=== PATIENT | female | born 1965 | race Caucasian/White ===

== ENCOUNTER 2016-11-06 05:44 | Inpatient (IN) | payer OTHER ==
[2016-11-06] VITALS (33 sets, daily range): BP systolic 115–155; BP diastolic 55–76; PULSE 65–78; RESP 13–26; TEMP 97.1–99.2; O2SAT 91–100; Ht 158.8 cm; Wt 65.5 kg
[~2016-11-06] VITALS: Ht 158.8 cm; Wt 65.5 kg
[~2016-11-06 05:44] MED LIST: ACET-44 PO; BUPR100T5 PO; ECHI400C18 PO; IBUP-1547 PO; IMMUNE SUPPORT; NORE1TAB32 PO; SERT50TA PO; VITA80008 PO
[2016-11-06 06:31] LABS: BASOPHILS % (AUTO) 0.7 % (0-2); EOSINOPHILS # (AUTO) 0.2 T/MM3 (0-0.5); EOSINOPHILS % (AUTO) 4.1 % (0-4); HCT - HEMATOCRIT 40.8 % (36-46); HGB - HEMOGLOBIN 13.6 GM/DL (12-16); LYMPHOCYTES # (AUTO) 1.4 T/MM3 (1-4.8); MEAN CORPUSCULAR HGB 31.9 UUG (26-34); MEAN CORPUSCULAR HGB CONC(MCHC 33.3 GM/DL (31-37); MEAN CORPUSCULAR VOLUME 95.6 UM3 (80-100); MEAN PLATELET VOLUME 10.4 UM3 (9.4-12.4); MONOCYTES # (AUTO) 0.3 T/MM3 (0-0.8); MONOCYTES % (AUTO) 7.5 % (0-9.0); NEUTROPHILS #(AUTO)-ABSOLUTE 2.5 T/MM3 (1.8-7.7); NEUTROPHILS % (AUTO) 56.7 % (33-66); RED BLOOD COUNT 4.27 M/MM3 (4.00-5.20); WBC - WHITE BLOOD COUNT 4.4 T/MM3 (4.5-11.0)
[2016-11-06 06:41] LABS: ANION GAP 11 MEQ/L (5-15); BUN/CREATININE RATIO 14 RATIO (6-26); CALCIUM 9.2 MG/DL (8.4-10.2); CHLORIDE 106 MEQ/L (98-107); CO2 - CARBON DIOXIDE 28 MEQ/L (22-30); CREATININE 0.8 MG/DL (0.7-1.2); GLOMERULAR FILTRATION RATE 76; GLUCOSE 90 MG/DL (65-110); POTASSIUM 3.9 MEQ/L (3.6-5); SODIUM 145 MEQ/L (134-144)
[2016-11-06] MEDS ORDERED: LIDOCAINE 1% (10mg/ml) 2ml SDV INJ ONE (06:45)
--- NOTE | 2016-11-06 06:59 | ANESPREOP ---
Anesthesia Record Date and Time DATE: 11/06/16 TIME: 06:57 Pre-Op Diagnosis heavy bleeding Uterine fibroids Proposed Surgical Procedure TOTAL ABD. HYST. WITH OR WITHOUT BSO Allergies: Coded Allergies: No Known Allergies (Unverified , 11/06/16) Ht/Wt/BMI Height: 5 ' 2.50 " Weight: 64.200 kg BMI: 25.5 kg/m2 Vital Signs Date Time Temp Pulse Resp B/P Pulse Ox O2 Delivery O2 Flow Rate FiO2 11/06/16 06:08 97.6 65 13 140/69 99 Room Air Medications Inpatient Medications Current Medications Medications (Trade) Dose Ordered Sig/Artemio Start Time Stop Time Status Last Admin Dose Admin Lactated Ringer's (Lactated Ringers) 1,000 ml @ 100 mls/hr Q10H 11/06/16 07:00 11/06/16 06:41 100 MLS/HR Acetaminophen (Mapap) 500 Mg Tablet, 2 TAB PO Q6H PRN for PAIN, (Reported) Last Taken: on 11/05/162199 Bupropion HCl (Wellbutrin Sr) 100 Mg Tablet.er, 1 TAB PO DAILY, (Reported) Last Taken: on 11/05/162229 Ibuprofen (Ibuprofen) 800 Mg Tablet, 1 TAB PO TID PRN for PAIN, (Reported) Last Taken: on 10/22/16 Norethindrone AC-Eth Estradiol (Junel 1 mg-20 Mcg Tablet) 1 Each Tablet, 1 TAB PO DAILY, (Reported) Last Taken: on 11/03/16 Sertraline (Zoloft) 50 Mg Tablet, 50 MG PO DAILY, ( Reported) Last Taken: on 11/05/162229 Vitamin A (Vitamin A) 8,000 Unit Capsule, 1 CAP PO DAILY, (Reported) Last Taken: on 10/22/16 [Immune Support] , (Reported) Last Taken: on 11/05/162229 Currently on Beta Tasha: No Medical/Surgical History Anesthesia PMH: Reports: Arthritis (mild-knees, hands), Denies: Anesthesia Reactions, Cancer, Glaucoma, Malignant Hyperthermia, Sleep Apnea Smoking Status: Never smoker Has pt. smoked today?: No Use Chewing Tobacco?: No Second Hand Exposure: No Substance Use Type: does not use Alcohol Intake: none HX of Last Menstrual Period: September 2016 Past Surgical History Orthopedic Surgeries: No Abdominal Surgeries: No Genitourinary Surgeries: No Cardiac Surgeries: No Endocrine Surgeries: No Reproductive Surgeries: Yes - Dx Lap and Exp Lap for endometriosis Neurological Surgeries: No Ear Surgeries: No Nose Surgeries: No Throat Surgeries: No Other Surgeries: No Anesthesia Adverse Reactions: FOUND none Family Hx of Anesthesia Advers: none Hx of Motion Sickness: No Pertinent Findings Laboratory Tests 11/06/16 06:20 Test 11/06/16 06:20 Human Chorionic Gonadotropin, Qual Negative (NEGATIVE) EKG Rhythm: Sinus Rhythm Physical Exam Respiratory: Bilat breath sounds equal, Lungs clear Cardiovascular: FOUND Regular rate, rhythm, FOUND No murmur Airway Assessment Mallampati Score: I TMD: 3 Fingerbreadths Neck Extension: Good Overall Assessment: No Airway Concerns ASA: 1 Discussion Discussed risks/options/alternatives of anesthesia and questions answered. Patient consents. Nursing pain assessment noted. Present: Spouse Attestation Statement Prior to the delivery of any anesthetic medication, I examined the patient, developed the plan, obtained the patient's consent and discussed the risk and benefits of the procedure with the patient/guardian. EILEEN FRANK EARLY MORNING November 06, 2016 06:59
[2016-11-06] MEDS ORDERED: MIDAZOLAM 2mg/2ml INJECTION IV ONE (07:00)
[2016-11-06] MEDS ORDERED: LR 1,000 ML IV SCH (07:00)
[2016-11-06] MEDS ORDERED: SCOPOLAMINE 1.5 MG PATCH TD ONE (07:00)
[2016-11-06] MEDS ORDERED: ACETAMINOPHEN 1,000mg Injection IV ONE (07:14)
[2016-11-06] MEDS ORDERED: LIDOCAINE (2%) 100 MG/5 ML PF SYRINGE IV ONE (07:14)
[2016-11-06] MEDS ORDERED: SUFENTANIL 50 MCG/ML VIAL ONE (07:14)
[2016-11-06] MEDS ORDERED: ROCURONIUM 50mg/5ml INJECTION IV ONE ×2 (07:14→08:34)
[2016-11-06] MEDS ORDERED: PROPOFOL 200mg 20 ML IV ONE ×2 (07:14→10:17)
[2016-11-06] MEDS ORDERED: KETAMINE 500mg/10ml INJECTION ONE (07:15)
[2016-11-06 07:59] LABS: BLOOD, URINE 1+ (NEGATIVE); COLOR,URINE YELLOW (YELLOW); LEUKOCYTE ESTERASE ,URINE NEGATIVE (NEGATIVE); NITRITE,URINE NEGATIVE (NEGATIVE); UROBILINOGEN,URINE 0.2 EU/DL (NORMAL)
[2016-11-06] MEDS ORDERED: CEFAZOLIN 1 GRAM INJECTION IV ONE (08:00)
[2016-11-06 08:14] LABS: RBC,URINE 0-1 /HPF (0-3); WBC,URINE NONE SEEN /HPF (0-5)
[2016-11-06 08:15] LABS: BACTERIA,URINE NONE SEEN (NEGATIVE); SQUAMOUS EPITHELIAL CELL,UR NONE SEEN
[2016-11-06] MEDS ORDERED: ROPIVACAINE 0.5% (5mg/ml) 30ml INJ ONE (08:52)
[2016-11-06] MEDS ORDERED: SALINE FLUSH 10ml SYRINGE ONE ×2 (08:53→10:31)
[2016-11-06] MEDS ORDERED: SALINE FLUSH *Sterile Field* 10ml SYRINGE ONE (08:55)
[2016-11-06] MEDS ORDERED: DEXAMETHASONE 4mg/ml - 1ml INJECTION ONE ×2 (09:19)
[2016-11-06] MEDS ORDERED: ONDANSETRON 4mg/2ml INJECTION ONE (10:16)
--- NOTE | 2016-11-06 10:17 | GYNOPNOTE1 ---
DANCING MASTER Postoperative Note Date of Operation: 11/06/16 Preoperative Diagnosis: Fibroids Preoperative Dx Comments PreOp Dx: metrorrhagia Postoperative Diagnosis: Same as Preoperative Hysterectomy: DONA RSO Left Salpingectomy Surgeon: Latoya John MD Vp Delivery Surgeon: Bibiana Tate MD Anesthesia Provider: Andre Baldwin CRNA Anesthesia Type: general Comments EBL: 150cc LATOYA JOHN MD November 06, 2016 10:17
[2016-11-06] MEDS ORDERED: PROCHLORPERAZINE 10mg/2ml INJECTION IV PRN (10:30)
[2016-11-06] MEDS ORDERED: MORPHINE SULFATE 4 MG SYRINGE IV PRN (10:30)
[2016-11-06] MEDS ORDERED: METOCLOPRAMIDE 10mg/2ml INJECTION IV PRN (10:30)
[2016-11-06] MEDS ORDERED: HYDROMORPHONE PCA 30 MG/30 ML VIAL IV PRN (10:30)
[2016-11-06] MEDS ORDERED: ONDANSETRON 4mg/2ml INJECTION IV PRN (10:30)
[2016-11-06] MEDS ORDERED: SUGAMMADEX 200 MG/2 ML INJECTION IV ONE (10:37)
[2016-11-06] MEDS ORDERED: KETOROLAC 30mg/ml INJECTION ONE (10:37)
--- NOTE | 2016-11-06 11:04 | ANESPD ---
Peripheral Nerve Blockade Physician: Latoya Jacobs MD Date: 11/06/16 Surgical Procedure: DONA, RSO Discussion Discussed risks/options/alternatives of anesthesia and questions answered. Patient consents. Nursing pain assessment noted. Block Start: 10:22 Block Stop: 10:40 Block Employed: TAP Block Indication: post-operative pain Approach: bilateral sides confirmed Position: supine Patient: Consent, risks/benefits discussed, Informed, post block act. discussed Monitors: EKG, SpO2, NIBP IV Sedation: No Decadron (mg): 8 Initial Vital Signs First Documented Vital Signs Date Time Temp Pulse Resp B/P Pulse Ox O2 Delivery O2 Flow Rate FiO2 11/06/16 06:08 97.6 65 13 140/69 99 Room Air Post Vital Signs Vital Signs Date Time Temp Pulse Resp B/P Pulse Ox O2 Delivery O2 Flow Rate FiO2 11/06/16 07:19 66 20 135/72 98 Room Air 11/06/16 06:08 97.6 Initial Pain Score: 0 Post Block Score: 0 Prep: chlorhexadine/ETOH Ultrasound Used?: Yes Injectate Ropivacaine (%): 0.38 Ropivacaine (mL): 40 Was Epi 1:200,000 Used?: No Injection Injection made incrementally with constant monitoring and aspiration every [5] ml. EILEEN FRANK CRNA November 06, 2016 11:04
[2016-11-06] MEDS: HYDROMORPHONE 2mg/ml INJECTION IV PRN ×2 (11:13→11:27)
--- NOTE | 2016-11-06 11:25 | NUR ---
PACU NAUSEA PT C/O NAUSEA IN PACU. Rachel FRANK CRNA ORDERED BENADRYL 25MG IV X1. SEE ORDERS/MAR FOR ADMINISTRATION RECORD.
[2016-11-06] MEDS ORDERED: DiphenhydrAMINE 50 MG/ML INJECTION IV ONE (11:30)
[2016-11-06 11:38] LABS: HGB - HEMOGLOBIN 11.3 GM/DL (12-16); MEAN CORPUSCULAR HGB 31.3 UUG (26-34); MEAN CORPUSCULAR HGB CONC(MCHC 32.3 GM/DL (31-37); MEAN PLATELET VOLUME 10.9 UM3 (9.4-12.4); RED BLOOD COUNT 3.61 M/MM3 (4.00-5.20); WBC - WHITE BLOOD COUNT 9.1 T/MM3 (4.5-11.0)
--- NOTE | 2016-11-06 12:06 | ANESPO ---
Post-Op Note Date 11/06/16 Time: 12:04 Status Pt Participated in Evaluation: Pt participated in person Vital Signs Date Time Temp Pulse Resp B/P Pulse Ox O2 Delivery O2 Flow Rate FiO2 11/06/16 11:40 77 17 137/64 95 Room Air 11/06/16 11:00 3.00 11/06/16 10:44 98.2 Cardiovascular Function: Regular pulse Telemetry Pattern: SR Mental Status: Alert/oriented Pain Level Intensity: 5 Hydration: IV infusing Complications during Recovery None apparent Follow-Up Instructions Instructions Per Surgeon EILEEN FRANK CRNA November 06, 2016 12:06
[2016-11-06] MEDS: LR 1,000 ML IV SCH ×3 (14:23→21:54)
[2016-11-06] MEDS: SIMETHICONE 80 MG CHEWABLE TABLET PO SCH ×3 (14:25→21:53)
[2016-11-06] MEDS ORDERED: KETOROLAC 30mg/ml INJECTION IV SCH (15:00)
--- NOTE | 2016-11-06 16:51 | OPNOTEF ---
DATE OF OPERATION 11/06/2016 PREOPERATIVE DIAGNOSES 1. Enlarging uterine fibroid. 2. Metrorrhagia. POSTOPERATIVE DIAGNOSES 1. Enlarging uterine fibroid. 2. Metrorrhagia. PROCEDURES Total abdominal hysterectomy, bilateral salpingectomy, right oophorectomy. SURGEON Latoya Jacobs MD SENIOR CENTER DIRECTOR Dr. Tate ANESTHESIA General endotracheal. ANESTHESIOLOGIST Andre Baldwin CRNA ESTIMATED BLOOD LOSS 150 mL. DESCRIPTION OF PROCEDURE Ms. Randall was brought to the OR and placed on the OR table in a comfortable supine position. She was given general anesthesia and intubated without difficulty. A Montoya catheter was placed to dependent drain. The abdomen was prepped and draped in the usual sterile fashion. A Pfannenstiel skin incision was made with a sharp knife. This was carried down to fascia. Fascia was incised transversely. Fascia was then tented up. This was bluntly and sharply dissected free of rectus muscles. Rectus muscles were bluntly divided. The peritoneum was tented up and sharply entered. This was then extended vertically. We explored the abdomen. Liver edge was smooth and free of palpable lesions. The omentum was free of masses. The uterus, however, was quite bulky and enlarged. We were able to deliver it through the incision but after attempting to place the [place]- [place] we felt we would work better with handheld retractors. Therefore, we were able to easily locate the round ligament on the right. It was ligated with two simple ligatures of 0-Vicryl. It was then excised. The vesicouterine fold of peritoneum was tented up and incised transversely to the midline. The ovaries could not be well seen at this point so we elected to come back for them later. We then planned to cross the fallopian tube. It was cut and then secured with two Ciara sutures of 0-Vicryl. We then descended along the mesosalpinx, carefully dissecting to the level of the round ligament. We then were able to sharply dissect around the broad ligament to the level of the uterine vessels on the right. These were doubly clamped, cut and then secured with two transfixion sutures of 0-Vicryl. We repeated the procedure on the left. However, it took quite a bit longer on the left because of a very irregular fibroid protruding from the left corpus. However, we were able to get to the uterine vessels and doubly clamped and secured them with the two Ciara sutures. We then descended along the cervix, doubly clamping, cutting and ligating with simple ligatures of 0-Vicryl until we reached the cervicovaginal angle. We were able to place two curved [place], one from each side across the cervicovaginal angle, staying close to the cervix. We then cut across the very top of the vagina, removing the uterus, bilateral fallopian tubes and the cervix as a unit. We then secured the vaginal cuff with a running, nonlocking 2-0 Vicryl, making sure to include the angles and uterosacral ligaments for support of the vagina. We irrigated copiously with sterile normal saline. There was a small edge of bleeding along the anterior cuff. It appeared to be well away from the bladder. This was secured with [id number] suture of 3-0 chromic. We then turned our attention to the adnexa. The right fallopian tube and ovary were now more easily seen. The infundibulopelvic ligament was then clamped across. The remnants of tube and the right ovary were then cut free and placed in a specimen container. We secured the IP ligament with a free tie of 0-Vicryl followed by a Ciara suture of 0-Vicryl. Hemostasis was under control. We turned our attention to the left. The fallopian tube on the left was free of the pelvis. However, there were some adhesions caught, making the left ovary barely able to be seen under the peritoneum on the left. We were able to see the ureters bilaterally. They were well below our area of operation but because I could not see the extent of the left ovary under the peritoneum I elected to leave it behind. The fallopian tube therefore was grasped and clamped across its base. It was cut across and the stump secured with a free tie followed by transfixion suture of 0-Vicryl. Once again we irrigated copiously with sterile normal saline, making sure that hemostasis was under good control. We then began our closure. Peritoneum was reapproximated with a running, nonlocking 2-0 Vicryl. Fascia was reapproximated with a running, nonlocking 0-Vicryl. Skin edges were reapproximated with a subcuticular style 3-0 undyed Vicryl. The wound was dressed with Steri-Strips and a sterile dressing. Counts were correct postoperatively x 2. The urine remained clear and free-flowing throughout the procedure. Ms. Randall was then brought out from under anesthesia, extubated and transferred to recovery in stable condition. TAHMINA
[2016-11-06 17:20] LABS: HCT - HEMATOCRIT 37.5 % (36-46); HGB - HEMOGLOBIN 12.5 GM/DL (12-16); MEAN CORPUSCULAR HGB 32.1 UUG (26-34); MEAN CORPUSCULAR HGB CONC(MCHC 33.3 GM/DL (31-37); MEAN CORPUSCULAR VOLUME 96.4 UM3 (80-100); MEAN PLATELET VOLUME 11.2 UM3 (9.4-12.4); RED BLOOD COUNT 3.89 M/MM3 (4.00-5.20); WBC - WHITE BLOOD COUNT 10.5 T/MM3 (4.5-11.0)
--- NOTE | 2016-11-06 18:54 | GSPOSTPN ---
Postoperative Progress Note 11/06/16 vitals reviewed hgb stable q&a w/ pt encouraged increased movement tonight and use educational program assistant as needed. RAYMOND MORA MD November 06, 2016 18:54
--- NOTE | 2016-11-06 19:15 | NUR ---
infiltration at 1915, iv site in right hand found to be infiltrated, puffy from hand to elbow. pitting edema 2+. iv dc'd and arm elevated on 2 pillows with heat applied. pt denies pain in right upper extremity. will continue to monitor.
--- NOTE | 2016-11-06 19:42 | NUR ---
SHIFT SUMMARY PATIENT IS ALERT AND ORIENTED X3. PATIENT VITALS ARE STABLE AND PATIENT IS ON ROOM AIR. PATIENT DENIES CP, NAUSEA, AND SOA. PATIENT HAS NOT GOTTEN OUT OF BED AT THIS TIME. PATIENT DRESSING IS CLEAN DRY AND INTACT. PATIENT LAWS IS PATENT AND DRAINING. FAMILY HAS BEEN AT BEDSIDE. WILL CONTINUE TO MONITOR.
--- NOTE | 2016-11-06 23:16 | NUR ---
Chart Check 24 hour chart check completed
[2016-11-07] VITALS (13 sets, daily range): BP systolic 113–134; BP diastolic 54–65; PULSE 72–81; RESP 14–18; TEMP 96.5–98.9; O2SAT 96–100
--- NOTE | 2016-11-07 00:12 | NUR ---
update pts edema in right arm improving. no longer pitting. continuously elevated on 2 pillows. will continue to monitor.
[2016-11-07] MEDS: IBUPROFEN 800 MG TABLET PO PRN ×4 (01:59→21:53)
[2016-11-07] MEDS: LR 1,000 ML IV SCH (04:34)
--- NOTE | 2016-11-07 06:10 | NUR ---
shift summary pt has slept soundly throughout the night. alert and oriented x 3. pt has tolerated a regular diet, denies n/v/soa. pt using dilaudid conservation agent for pain. pt dangled twice last night. amador catheter with adequate output. bilat scd's. continuous oximetry. LR running @ 150ml/hr in left forearm. right arm with significantly less edema. dressing on abdomen c/d/i. bed locked and low, bed alarm on. call light within reach. will continue to monitor.
--- NOTE | 2016-11-07 08:16 | PNPDOC ---
RN INTERVENTIONAL Progress Note Subjective Today's Date 11/07/16 Pt reports adequate pain control. Has tolerated liquids, small amount of solids. Objective Vitals Vital Signs Date Time Temp Pulse Resp B/P Pulse Ox O2 Delivery O2 Flow Rate FiO2 11/07/16 07:11 98.7 76 18 113/59 98 Room Air 11/06/16 11:00 3.00 Urine Output: Good General: Alert and Oriented Abdomen: Soft, Non-distended Incision: Clean/Dry/Intact Extremities: Non-tender Edema: None Laboratory Item Value Date Time White Blood Count 4.4 T/MM3 L 11/06/16 0620 White Blood Count 9.1 T/MM3 # 11/06/16 1106 White Blood Count 10.5 T/MM3 11/06/16 1557 Hemoglobin 13.6 GM/DL 11/06/16 0620 Hemoglobin 11.3 GM/DL L # 11/06/16 1106 Hemoglobin 12.5 GM/DL 11/06/16 1557 Platelet Count 211 T/MM3 11/06/16 0620 Platelet Count 181 T/MM3 11/06/16 1106 Platelet Count 183 T/MM3 11/06/16 1557 Assessment Comments Continue to advance diet, activity. Routine care. Q&A FILEMON JOHN MD November 07, 2016 08:15
[2016-11-07] MEDS ORDERED: DOCUSATE CALCIUM 240 MG CAPSULE PO SCH (09:00)
[2016-11-07] MEDS: DOCUSATE CALCIUM 240 MG CAPSULE PO SCH (09:08)
[2016-11-07] MEDS: SIMETHICONE 80 MG CHEWABLE TABLET PO SCH ×4 (09:08→20:46)
[2016-11-07] MEDS: HYDROCODONE/APAP 5 mg/325 mg TABLET PO PRN ×4 (10:24→21:46)
--- NOTE | 2016-11-07 13:36 | NUR ---
CM THIS WORKER MET WITH PT AT THIS TIME. PT LAYING IN BED AT THIS TIME. TWO FEMALE VISITORS PRESENT AT THIS TIME. PT DENIED NEEDS AT THIS TIME REGARDING DISCHARGE. PT REPORTED THAT SHE HAS FAMILY IN THE AREA, A , AND CHILDREN AT HOME TO HELP IF SHE NEEDED. THIS WORKER WROTE NAME ON WHITE BOARD IN THE ROOM. ENCOURAGED TO CONTACT CM WITH ANY NEEDS.
--- NOTE | 2016-11-07 17:20 | PNPDOC ---
Progress Note Date 11/07/16 No complaints. Ambulated 3x with assistance. Q&A Probable dismissal in virgen. FILEMON JOHN MD November 07, 2016 17:20
--- NOTE | 2016-11-07 17:25 | NUR ---
Summary Pt A&Ox3. VS stable on RA. Pt has denied nausea this shift, given PRN [place] for pain. Pt has ambulated in the hallway twice this shift and been up to the chair for meals and tolerates well. Family has been present in room throughout the day. Lindsay was DC'd. Pt IV locked. Up with standby assistance. Dressing to the abdomen c/d/i. Side rails up X2, call light w/in reach, bed alarm on.
--- NOTE | 2016-11-07 22:53 | NUR ---
SHIFT SUMMARY PATIENT IS ALERT AND ORIENTED X3 THIS SHIFT. VITAL SIGNS ARE STABLE ON ROOM AIR. PATIENT IS UP WITH ASSIST X1. PAIN HAS BEEN CONTROLLED WITH ORAL PRN PAIN MEDICATIONS. PATIENT DENIES ANY NAUSEA OR VOMITING. WILL CONTINUE TO MONITOR.
[2016-11-08 00:31] VITALS: BP 123/65; PULSE 81; RESP 16; TEMP 98.8; O2SAT 98
[2016-11-08] MEDS: HYDROCODONE/APAP 5 mg/325 mg TABLET PO PRN ×3 (00:46→09:17)
--- NOTE | 2016-11-08 00:46 | NUR ---
PAIN Pt given PRN norco for pain rated 5/10 in abdomen and upper chest area. Pt c/o some gas pain that comes and goes in upper chest/shoulder area rates it a 5/10 when it comes. Pt up to void 250mls at this time. Dressing looks good. Will continue to monitor. Pt in no acute distress.
[2016-11-08 00:49] VITALS: PULSE 81; RESP 16
[2016-11-08 03:41] VITALS: BP 127/61; PULSE 66; RESP 18; TEMP 98.5; O2SAT 98
--- NOTE | 2016-11-08 06:11 | NUR ---
Summary PT is A/O x 3. Pt up with stand by assist. Pt has reported pain 6/10 and after norco on board and Pt awaken from sleep, pain has decreased to 1/10. Pt has had some gas pain, but not enough to keep her from sleeping. Pt has rested most of the night for 2300 until now. Pt remains to be IVL. Pt output adequate. PT dressing remains dry and intact. Pt in no acute distress. Pt has been cooperative this shift. Pt states norco effective. Pt agreeable to plan to use both motrin and norco for pain relief. Will continue to monitor.
[2016-11-08] MEDS: IBUPROFEN 800 MG TABLET PO PRN (06:25)
[2016-11-08 07:25] VITALS: BP 114/61; PULSE 64; RESP 17; TEMP 97.4; O2SAT 98
[2016-11-08 07:53] VITALS: PULSE 64; RESP 17
[2016-11-08] MEDS ORDERED: ESTR1PAT72 TD (08:58)
[2016-11-08] MEDS ORDERED: HYDR-4246 PO (08:58)
[2016-11-08] MEDS ORDERED: IBUP-1547 PO (08:58)
--- NOTE | 2016-11-08 09:04 | PNPDOC ---
Progress Note Date 11/08/16 DISCHARGE SUMMARY 51 yo G0 with enlarging uterine fibroids and metrorrhagia admitted 11/06/2016 for total abdominal hysterectomy, bilateral salpingectomy, and left oopherectomy. Post-operative course uneventful, able to tolerate increases in diet and activity. Dismissed to home 11/08/2016 in stable condition. Pathology report pending. RXs: [place], ibuprofen, estradiol patch FILEMON JOHN MD November 08, 2016 09:04
[2016-11-08] MEDS: DOCUSATE CALCIUM 240 MG CAPSULE PO SCH (09:15)
[2016-11-08] MEDS: SIMETHICONE 80 MG CHEWABLE TABLET PO SCH (09:15)
--- NOTE | 2016-11-08 10:20 | NUR ---
Estradiol Patch During discharge teaching the Pt notified this RN that she pulled her Estradiol patch off in the shower. Will notify Dr. Jacobs.
--- NOTE | 2016-11-08 10:33 | NUR ---
Replaced Estradiol Patch New orders received per Dr. Jacobs to reapply Estradiol patch prior to discharge.
--- NOTE | 2016-11-08 10:42 | NUR ---
Discharge Pt discharged at this time via ambulatory through the ER entrance in the company of an adult. VS stable on RA. IV catheter DC'd prior to discharge, catheter tip intact. This RN applied a new Estradiol patch per Dr. Jacobs order prior to discharge, patch dated. Instructions given to the Pt to change every week, prescriptions sent with Pt to take to preferred pharmacy. Personal belongings sent home with Pt. Discharge packet and instructions given to Pt. This RN discussed medications, incision care, diet, activity, restrictions, and follow up appt with Pt.
[2016-11-09] MEDS ORDERED: SCOPOLAMINE PATCH REMOVAL TD ONE (07:00)
[2016-11-09] MEDS ORDERED: SCOPOLAMINE 1.5 MG PATCH TD PRN (08:00)
[2016-11-13] MEDS ORDERED: [UNRECOGNIZED DRUG - OTHER] TD SCH (10:30)
== END 2016-11-08 10:42 | disposition home or self-care (01) | DRG 743 ==
LOC: SRG 05:44
PROVIDERS: ADMIT Obstetrics & Gynecology; ATTEND Obstetrics & Gynecology
PROC: 0UTC0ZZ Resection of Cervix, Open Approach (ICD-10-PCS; 2016-11-06)
PROC: 0UT20ZZ Resection of Bilateral Ovaries, Open Approach (ICD-10-PCS; 2016-11-06)
PROC: 0UT70ZZ Resection of Bilateral Fallopian Tubes, Open Approach (ICD-10-PCS; 2016-11-06)
PROC: 0UT90ZZ Resection of Uterus, Open Approach (ICD-10-PCS; principal; 2016-11-06 07:47)
DX: D25.9 Leiomyoma of uterus, unspecified (principal); N92.1 Excessive and frequent menstruation with irregular cycle; F41.9 Anxiety disorder, unspecified; F32.9 Major depressive disorder, single episode, unspecified
CPT/HCPCS: 36415; 80048; 81001; 84703; 85025; 85027; 86850; 86900; 86901; 86922